=== PATIENT | female | born 1995 | race Caucasian/White ===

== ENCOUNTER 2017-01-06 11:04 | Emergency (ER) | payer OTHER ==
--- OUTSIDE RECORDS SUMMARY | 2017-01-06 11:39 | XMS REPORT | Continuity of Care Document ---
:1995 Author Organization [facility] ([facility]) Address [address] [place] [address] Phone [phone] Care Team Providers Name Role Phone Teodoro Cantu Primary Care Provider [phone] Source Comments This disclosure is being made pursuant to the Care Everywhere program, applicable federal and state laws, and may not contain all informaitonavailable regarding this patient.[facility] ([facility]) Active Allergies and Adverse Reactions No Active Allergies Current Medications Not on file Active Problems Problem Noted Date Precocious sexual development and puberty, not elsewhere classified 09/01/2004 Social History Tobacco Use Types Packs/Day Years Used Date Never Assessed Last Filed Vital Signs Vital Sign Reading Time Taken Blood Pressure 109/67 05/24/2006 2:58 PM CDT Pulse 86 05/24/2006 2:58 PM CDT Temperature 36.3 C (97.34 F) 05/24/2006 2:58 PM CDT Respiratory Rate 20 05/24/2006 2:58 PM CDT Height 1.632 m (5' 4.25") 05/24/2006 2:58 PM CDT Weight 76.399 kg (168 lb 6.9 oz) 05/24/2006 2:58 PM CDT Body Mass Index 28.68 05/24/2006 2:58 PM CDT Oxygen Saturation - - Plan of Care Health Maintenance Due Date Last Done Comments Hepatitis B Vaccine (1 of 3 - Primary Series) 1995 HPV Vaccine (1 of 3 - Female/Unknown 3 Dose Series) 2006 Tdap Vaccine 2006 Meningococcal Vaccine (1 of 1) 2011 Cervical Cancer Screening 2013 Lipid Disorder Screening 2013 MMR Vaccine 2013 Td Vaccine 2013 Varicella Vaccine (1 of 2 - Adult - No Evidence of 2013 Immunity) Influenza Vaccine: Seasonal (#1) 04/18/2016 Results from Last 3 Months Not on file
--- NOTE | 2017-01-06 11:42 | ERNOTE ---
Upper Extremity HPI - Narrative Date of Service: 01/06/17 - General Extremities Pain Location: hand: right Time Seen by Provider: 01/06/17 11:23 Source: patient, RN notes reviewed Exam Limitations: no limitations - Immun/Allergies/Home Medications Immunizations: IMMUNIZATION HX Immunizations Up to Date Yes History of Influenza Vaccine More Information Required Hx Pneumococcal Vaccination No Allergies/Adverse Reactions: Allergies Allergy/AdvReac Type Severity Reaction Status Date / Time No Known Allergies Allergy Verified 01/06/17 11:09 Home Medications: HOME MEDICATIONS Calcium Carbonate [Calcium] 500 mg PO DAILY 01/06/17 [Last Taken Unknown] Vit #76/Iron,Carb/FA [Prenatabs Rx Tablet] 1 each PO DAILY 01/06/17 [ Last Taken Unknown] - History of Present Illness Narrative: 21 y/o female ambulatory to the ED for lacerations to her right hand. She reports falling down some steps at home. She had a glass in her hand at the time. She attempted to catch herself with that hand when the glass broke. She denies any other injuries. Occurred: just prior to arrival Location of Incident: home Severity: mild Method of Injury: Reports: fell Reason for Fall: Reports: tripped Loss of Consciousness: Reports: no loss of consciousness Associated Symptoms: Denies: tingling, weakness, numbness distally Other Injuries: Reports: none Review of Systems - Review of Systems Constitutional: Absent: recent illness, fever EYE: Present: no symptoms reported ENT: Present: no symptoms reported Respiratory: Present: no symptoms reported Cardiology: Absent: chest pain, palpitations, syncope Gastrointestinal/Abdominal: Absent: nausea, vomiting, abdominal pain Genitourinary: Present: no symptoms reported Musculoskeletal: Absent: joint pain, joint swelling Skin: Absent: lesions, lumps Neurological: Absent: headache, dizziness/light-headedness Endocrine: Present: no symptoms reported Hematologic/Lymphatic: Present: no symptoms reported Psych: Present: no symptoms reported - Patient's Past Medical History Patient History - Medical: ADHD, Anxiety Patient History - Cardiac/Respiratory: No pertinent hx Patient History - Cancer: No Hx of Cancer Patient History - Surgical Procedures: T & A Patient History - Other: None LMP (females 10-50): - EDC 04/24/2017 - Family History Mother Family History - Medical: No pertinent hx Family History - Cardiac/Respiratory: No pertinent hx Father Family History - Medical: No pertinent hx Family History - Cardiac/Respiratory: No pertinent hx - Social History Living Situations: home Psych History: Hx of Anxiety Smoking Status: Current every day smoker Alcohol Use: none Drug Use: none - Immunizations Immunizations Up to Date: Yes Hx Pneumococcal Vaccination: No History of Influenza Vaccine: More Information Required to Determine Physical Exam - Physical Exam General Appearance: Present: wd/wn, alert, no apparent distress Respiratory: Present: no respiratory distress, no accessory muscle use Cardiovascular/Chest: Present: normal peripheral pulses Peripheral Pulses: N=norm/S=strong/W=weak/B=bound/A=absent: Dorsalis-pedis (R): Strong, Dorsalis-pedis (L): Strong Extremity Exam: Present: normal range of motion, no edema. Absent: joint redness, joint swelling Neurological Exam: Present: alert, oriented, normal mood/affect, no motor/ sensory deficits Skin Exam: Present: normal color, warm/dry, other - Lacerations - right middle finger ED Progress - Vital Signs Patient's Vital Signs:: I have reviewed the patient's vital signs. Vital Signs: Vital Signs 01/06/17 01/06/17 11:06 11:31 Temperature 36.5 C 37.0 C Pulse Rate 106 H 97 Respiratory 16 14 Rate Blood Pressure 151/78 142/92 O2 Sat by Pulse 100 98 Oximetry - Progress/Reassessment Chief Complaint: Laceration Progress:: Improved Procedures Rt middle finger - lateral, ulnar aspect Anesthesia: 1% Lidocaine, Digital Block Length of Repair/Wound (cm): 2 Wound's Depth/Shape: into subcutaneous, linear Wound Explored: clean, to base, in bloodless field, no foreign body Wound Intervention: irrigated w/saline Distal NVT: neuro/vasc intact, no tendon injury Wound Repaired With: sutures Suture Size/Type: 5-0, nylon Number of Sutures: 4 Layer Closure: Simple Wound Dressing: sterile dressing applied Complications: Pt dusty procedure well Rt middle finger, lateral, radial aspect Anesthesia: 1% Lidocaine, Digital Block Length of Repair/Wound (cm): 3 Wound's Depth/Shape: into subcutaneous, flap, contused tissue Wound Explored: clean, to base, in bloodless field, no foreign body Wound Intervention: irrigated w/saline, debrided minimal Distal NVT: neuro/vasc intact, no tendon injury Wound Repaired With: sutures Suture Size/Type: 5-0, nylon Number of Sutures: 5 Layer Closure: Simple Wound Dressing: sterile dressing applied Complications: Pt dusty procedure well Departure Clinical Impression: Laceration of finger Qualifiers: Encounter type: initial encounter Qualified Code(s): S61.219A - Laceration without foreign body of unspecified finger without damage to nail, initial encounter - Departure Disposition: Home Follow Up Needed Condition: Good Instructions: Sutured Wound Care, [id number] Additional Instructions: Keep dressing dry and in place for 24 to 48 hours - Can then gently wash wound with soap and water but do not soak for prolonged periods. Apply antibiotic ointment twice a day and bandage as needed. Tylenol for pain - Elevate, ice packs Have sutures removed in 7 to 10 days Referrals: Renetta Blue MD [Primary Care Provider] -
[2017-01-06] MEDS ORDERED: LIDOCAINE HCL 20 ML VIAL ONE (11:46)
[2017-01-06 13:01] VITALS: BP 154/93
== END 2017-01-06 12:54 | disposition home or self-care (01) ==
LOC: ER 11:04
PROC: 0JQJ0ZZ Repair Right Hand Subcutaneous Tissue and Fascia, Open Approach (ICD-10-PCS; principal; 2017-01-06)
DX: S61.212A Laceration without foreign body of right middle finger without damage to nail, initial encounter (principal); W01.10XA Fall on same level from slipping, tripping and stumbling with subsequent striking against unspecified object, initial encounter

== ENCOUNTER 2017-02-17 07:23 | Emergency (ER) | payer OTHER ==
--- NOTE | 2017-02-17 07:44 | ERNOTE ---
<Troy Xie - Last Filed: 02/17/17 07:51> Date of Service: 02/17/17 Time Seen by Provider: 02/17/17 07:39 Stated Complaint: SORE THROAT, EAR PAIN Source: patient Immunizations: IMMUNIZATION HX Immunizations Up to Date Yes History of Influenza Vaccine More Information Required Hx Pneumococcal Vaccination No Allergies/Adverse Reactions: Allergies No Known Allergies Allergy (Verified 02/17/17 07:38) Home Medications: HOME MEDICATIONS Calcium Carbonate [Calcium] 500 mg PO DAILY 01/06/17 [Last Taken Unknown] Vit #76/Iron,Carb/FA [Prenatabs Rx Tablet] 1 each PO DAILY 01/06/17 [ Last Taken Unknown] Dextromethorphan HBr [Robitussin] 15 mg PO QPM PRN #120 ml 02/17/17 [Last Taken Unknown] - History of Present Ilness Narrative: C/O SORE THROAT FOR A WEEK WITH COUGH , STUFFY EARS ( LEFT > RIGHT) AND HX. OF BRONCHITIS. SHE IS A SMOKER BUT SAYS WITH THE URI SX'S SHE HASN'T BEEN SMOKING MUCH. NO FEVER . ON NO MEDS EXCEPT FOR VITS. Review of Systems - Review of Systems Constitutional: Present: See HPI, recent illness EYE: Present: no symptoms reported ENT: Present: See HPI, sore throat Respiratory: Present: See HPI, cough Cardiology: Present: no symptoms reported Gastrointestinal/Abdominal: Present: no symptoms reported Genitourinary: Present: no symptoms reported Musculoskeletal: Present: no symptoms reported Skin: Present: no symptoms reported Neurological: Present: emotional problems Endocrine: Present: no symptoms reported Hematologic/Lymphatic: Present: no symptoms reported Psych: Present: no symptoms reported All Other Systems: All systems neg except as marked - Patient's Past Medical History Patient History - Medical: ADHD, Anxiety Patient History - Cardiac/Respiratory: No pertinent hx Patient History - Cancer: No Hx of Cancer Patient History - Surgical Procedures: T & A Patient History - Other: None - Family History Mother Family History - Medical: No pertinent hx Family History - Cardiac/Respiratory: No pertinent hx Father Family History - Medical: No pertinent hx Family History - Cardiac/Respiratory: No pertinent hx - Social History Living Situations: home Psych History: Hx of Anxiety Smoking Status: Light tobacco smoker Alcohol Use: none Drug Use: none - Immunizations Immunizations Up to Date: Yes Hx Pneumococcal Vaccination: No History of Influenza Vaccine: More Information Required to Determine Physical Exam - Physical Exam General Appearance: Present: wd/wn, alert, no apparent distress - AFEBRILE. Eye Exam: Normal inspection: bilateral Ears, Nose, Throat: Present: normal except - - HER THROAT LOOKS NORMAL WITH NO ERYTHEMA OR SWELLING OR EXUDATE OR ULCERATIONS. , nasal congestion - MILD, NO OBSTRUCTION, MILD MUCOSAL ERYTHEMA. Neck: Present: normal inspection, nontender. Absent: lymphadenopathy (R), lymphadenopathy (L), thyromegaly Respiratory: Present: no respiratory distress, normal breath sounds, no accessory muscle use, chest nontender, lungs clear Cardiovascular/Chest: Present: regular rate, rhythm - HEART RATE = 90, no murmur , normal peripheral pulses ED Progress - Vital Signs Vital Signs: Vital Signs 02/17/17 07:28 Temperature 36.5 C Pulse Rate 130 H Respiratory 14 Rate Blood Pressure 123/77 O2 Sat by Pulse 98 Oximetry - Progress/Reassessment Chief Complaint: Cough - Transfer of Care Physician Sign Out: Troy Xie Receiving Physician: Arabella Quintana Expected Disposition: Discharge Departure - Departure Clinical Impression: Upper respiratory infection, viral Disposition: Home self-care Condition: Good Instructions: Upper Respiratory Infection, Adult, [id number], Throat Culture , Sore Throat, [id number] Referrals: Renetta Blue MD [Primary Care Provider] - Prescriptions: Dextromethorphan HBr [Robitussin] 15 mg PO QPM PRN #120 ml PRN Reason: Cough <Arabella Quintana - Last Filed: 02/17/17 08:18> Immunizations: IMMUNIZATION HX Immunizations Up to Date Yes History of Influenza Vaccine More Information Required Hx Pneumococcal Vaccination No ED Progress - Vital Signs Vital Signs: Vital Signs 02/17/17 07:28 Temperature 36.5 C Pulse Rate 130 H Respiratory 14 Rate Blood Pressure 123/77 O2 Sat by Pulse 98 Oximetry
--- OUTSIDE RECORDS SUMMARY | 2017-02-17 07:57 | XMS REPORT | Continuity of Care Document ---
:1995 Author Organization [facility] ([facility]) Address [address] [place] [address] Phone [phone] Care Team Providers Name Role Phone Teodoro Cantu Primary Care Provider [phone] Source Comments This disclosure is being made pursuant to the Care Everywhere program, applicable federal and state laws, and may not contain all informaitonavailable regarding this patient.[facility] ([facility]) Active Allergies and Adverse Reactions No Active [...]
[2017-02-17 08:32] VITALS: BP 133/76
== END 2017-02-17 08:36 | disposition home or self-care (01) ==
LOC: ER 07:23
DX: J06.9 Acute upper respiratory infection, unspecified (principal); Z72.0 Tobacco use

== ENCOUNTER 2017-04-11 10:53 | Inpatient (IN) | payer OTHER ==
[2017-04-11 11:05] LABS: Hematocrit 40.4 % (37.0-47.0); Hemoglobin 13.9 gm/dL (12.5-16.0); Mean Corpuscular Hemoglobin 30.6 pg (27-31); Mean Corpuscular Hgb Conc 34.4 g/dl (32-36); Mean Platelet Volume 10.3 fl (6.0-9.5); Neutrophil % 70.1 % (42-75.0); Platelet Count 192 K/mm3 (150-450); Red Blood Count 4.54 M/mm3 (4.2-5.4); Red Cell Distribution Width 13.2 % (11.5-14.0); White Blood Count 11.5 K/mm3 (4.0-10.5)
[2017-04-11 11:17] LABS: Random Urine Total Protein 28.9 mg/dL (0-12)
[2017-04-11 11:24] LABS: Albumin * 2.7 gm/dl (3.4-5.0); Anion Gap 15.3 mmol/L (6.8-13.8); BUN/Creatinine Ratio 18.2 (9.0-21.6); Bilirubin, Total 0.3 mg/dL (0.0-1.1); Ca. Corrected For Albumin 9.1 mg/dL (8.4-10.2); Calcium * 8.4 mg/dL (7.9-10.9); Carbon Dioxide 21.9 mmol/L (24-32.6); Potassium 4.2 mmol/L (3.4-4.6); Total Protein 6.4 gm/dL (6.2-8.2)
[2017-04-11] MEDS ORDERED: DEXTROSE 5%-LACTATED RINGERS 1,000 ML IV PRN (15:20)
[2017-04-11] MEDS ORDERED: OXYTOCIN/DEXTROSE 5%-WATER 30 UNITS/500 ML BAG IV ONE ×2 (15:20→22:07)
[2017-04-11] MEDS ORDERED: LIDOCAINE HCL 50 ML VIAL PERI PRN (15:20)
[2017-04-11] MEDS ORDERED: RINGER'S SOLUTION,LACTATED 1,000 ML IV ONE (15:20)
[2017-04-11] MEDS ORDERED: BUPIVACAINE HCL/0.9 % NACL/PF 250 ML EP PRN (16:13)
[2017-04-11] MEDS ORDERED: ONDANSETRON HCL/PF 2 MG/ML VIAL IV PRN (16:13)
[2017-04-11] MEDS ORDERED: NALOXONE HCL 1 MG/1 ML SYRG IV PRN (16:13)
[2017-04-11] MEDS ORDERED: fentaNYL CITRATE/PF 50 MCG/ML AMPUL IT SCH (16:15)
--- NOTE | 2017-04-11 17:19 | OR ---
Anesthesia Pre Procedure Eval Date of Service: 04/11/17 Pre Procedure Evaluation: Last Vital Signs Temp 36.6 C 02/17/17 08:30 Pulse Resp BP 133/76 02/17/17 08:30 Pulse Ox Anesthesia Pre Procedure Evaluation Heart Rate: 99 Blood Pressure: 127/79 Termperature: 36.8 Respiratory Rate: 18 SaO2: 99 DATE: 04/11/2017 TIME: 1645 INDICATIONS: Active labor, labor pain PAST MEDICAL HISTORY: Multipara patient in active labor requesting labor analgesia. EXAM: Heart regular; lungs clear ASSESSMENT OF MEDICAL STATUS: Appropriate candidate for labor analgesia PLANNED PROCEDURE: Combination spinal epidural for labor analgesia. Of note this preanesthesia evaluation as dictated after the placement of the epidural. Home Medications: HOME MEDICATIONS Calcium Carbonate [Calcium] 500 mg PO DAILY 01/06/17 [Last Taken 04/10/17 09:00] Vit #76/Iron,Carb/FA [Prenatabs Rx Tablet] 1 each PO DAILY 01/06/17 [ Last Taken 04/10/17 09:00] Biotin 5,000 mcg PO DAILY 04/11/17 [Last Taken 04/10/17 09:00]
--- NOTE | 2017-04-11 17:21 | OR ---
Anesthesia Procedure Note - Anesthesia Procedure Note Date of Service: 04/11/17 Narrative: Vital Signs - Last Taken Temp 36.6 C 02/17/17 08:30 Pulse Resp BP 133/76 02/17/17 08:30 Pulse Ox 04/11/17 17:19 ANESTHESIA PROCEDURE NOTE Date of Procedure: 04/11/2017 Time of procedure: 1645. Performed by: VIVIAN Storey CRNA, MSN Incubator Machine Operator: Earnestine Buckley RN. Preprocedure diagnosis: Active labor, labor pain. Post procedure diagnosis: Same. Procedure:Epidural for labor analgesia L3 4. Indications: Labor pain. Findings: See below. Details of the procedure: The patient was placed on the side of the bed in sitting positionand prepped with DuraPrep then draped in a sterile fashion. Lidocaine 1% was infiltrated to the skin and subcutaneous tissues at the level of the L3 4 interspace. An 18-gauge Touhy needle was used to approach the epidural space with loss of resistance technique. Once loss of resistance was achieved a 24-gauge Pencan needle was passed through the epidural needle and CSF was contacted. After CSF returned fentanyl 20 mcg of fentanyl was injected in the spinal needle was removed the epidural catheter was then threaded approximately 4 cm in the epidural needle was removed. The catheter was taped in place and after careful aspiration 3 mL of 1.5% lidocaine with 1-200,000 epinephrine was injected without change in maternal heart rate or sensorium. . EBL: Minimal. Fluids: N/A. Specimen: N/A. Post procedure condition: The patient tolerated the procedure well with good relief. No complications were noted. Thank you for this consultation. Ronnie Cintron CRNA, EMBLEM FUSER TENDER, MSN
[2017-04-11] MEDS ORDERED: oxyCODONE HCL/ACETAMINOPHEN 1 TAB TABLET PO PRN (22:07)
[2017-04-11] MEDS ORDERED: SENNOSIDES 8.6 MG TABLET PO PRN (22:07)
[2017-04-11] MEDS ORDERED: BISACODYL 10 MG SUPP.RECT RC PRN (22:07)
[2017-04-11] MEDS ORDERED: HYDROCORTISONE 30 APPL TUBE TP PRN (22:07)
[2017-04-11] MEDS ORDERED: GLYCERIN/WITCH HAZEL LEAF 40 APPL BOX TP PRN (22:07)
[2017-04-11] MEDS ORDERED: BENZOCAINE/MENTHOL 81 SPRAY CAN TP PRN (22:07)
--- NOTE | 2017-04-11 22:09 | OR ---
Operative Report - Dictated Report Narrative: Spontaneous vaginal delivery of viable male at 2145 on 04/11/2017 with Apgars 9 and 9, weighing 3538 g in RHINA position. Nuchal cord 1 reduced on perineum. Cord clamping delayed approximately 1 minute Placenta delivered complete, intact, with three vessel cord Estimated blood loss: less than 50 ml Lacerations: None History for MU Definition: * The number of deliveries resulting in a live the patient experienced prior to current hospitalization * The previous delivery of live twins or any live multiple gestation is considered one live event. *If primagravida or nulliparous is documented select zero for the number of previous live births. Live Events: 1
[2017-04-12] MEDS: IBUPROFEN 800 MG TABLET PO PRN ×3 (03:28→16:18)
[2017-04-12] MEDS: oxyCODONE HCL/ACETAMINOPHEN 1 TAB TABLET PO PRN ×4 (04:40→19:26)
[2017-04-12] MEDS: DOCUSATE SODIUM 100 MG CAPSULE PO SCH ×2 (09:49→20:56)
--- NOTE | 2017-04-12 10:10 | PN ---
Subjective - Date and Time Seen Date: 04/12/17 Time: 10:09 Objective - Vitals Vitals: Last Vital Signs Temp 36.4 C L 04/12/17 07:00 Pulse 68 04/12/17 07:00 Resp 20 04/12/17 07:00 BP 112/67 04/12/17 07:00 Pulse Ox 98 04/12/17 07:00 Patient denies complaints. Lochia wnl Abdomen - soft, nontender Uterus - firm, at umbilicus - 1 No calf tenderness Impression: day #1 - s/p spontaneous vaginal delivery. Plan: Continue routine care - Abnormal Lab Findings Abnormal Lab Findings: Abnormal Lab Results 04/11/17 04/11/17 04/11/17 Range/Units 10:52 10:52 10:52 WBC 11.5 H (4.0-10.5) K/mm3 MPV 10.3 H (6.0-9.5) fl Immature Gran % (Auto) 0.90 H (0.001-0.429) % Immature Gran # (Auto) 0.10 H (0.000-0.0310) K/mm3 Lymphocytes % 19.3 L (20-51) % Neutrophils # 8.0 H (1.3-6.0) K/mm3 Carbon Dioxide 21.9 L (24-32.6) mmol/L Anion Gap 15.3 H (6.8-13.8) mmol/L Est GFR (Non-Af Amer) 148 H D (60-130) mL/min Albumin 2.7 L (3.4-5.0) gm/dl U Random Total Protein 28.9 H (0-12) mg/dL U [place] Prot/Creat Ratio 206 H (0-199) mg/gm
[2017-04-12] MEDS ORDERED: CALCIUM CARBONATE 500 MG TAB.CHEW PO PRN (19:14)
[2017-04-13 08:34] VITALS: BP 113/85
[2017-04-13] MEDS: IBUPROFEN 800 MG TABLET PO PRN (09:53)
[2017-04-13] MEDS: DOCUSATE SODIUM 100 MG CAPSULE PO SCH (09:53)
== END 2017-04-13 13:30 | disposition home or self-care (01) | DRG 775 ==
LOC: LAB 10:53 → OBCLINIC 10:53 → OB 15:13 → MS 04-12 17:15
PROVIDERS: ADMIT Obstetrics & Gynecology; ATTEND Obstetrics & Gynecology
PROC: 10E0XZZ Delivery of Products of Conception, External Approach (ICD-10-PCS; principal; 2017-04-11)
PROC: 00HU33Z Insertion of Infusion Device into Spinal Canal, Percutaneous Approach (ICD-10-PCS; 2017-04-11)
DX: O69.81X0 Labor and delivery complicated by cord around neck, without compression, not applicable or unspecified (principal); Z3A.38 38 weeks gestation of pregnancy; Z37.0 Single live birth